=== PATIENT | female | born 1965 | race African-American/Black ===

== ENCOUNTER 2017-02-07 14:07 | Emergency (ER) | payer BC ==
--- NOTE | ~2017-02-07 | US89 ---
[facility] A Service of [facility] & [facility] RADIOLOGY TEXT RESULTS PATIENT: CLAUDY MARTINEZ LOCATION: [facility] : 67 UNIT #: [id number] AGE: [address]: Rubina Quezada APRN SEX: F ORDER DR: [id number] [facility] [address] [place], [place] [address] [id number] MR#: [id number] #: [id number] NAME: CLAUDY MARTINEZ : 1965 SEX: F STUDY DATE/TIME: 02/07/2017 14:52 UNIT: [facility] ROOM: STUDY DESCRIPTION: Lower Ext Arterial Exam Attending Physician: Rubina Quezada A.P.R.N. Referring Physician: Darren Jaime M.D. Ordering Physician: Marcellus Jameson M.D. Primary Care Physician: Kiley DurandPCarlosRIesha MEDICAL IMAGING REPORT This report is preliminary unless electronic signature is present EXAM Ankle-brachial indices, 02/07/17. HISTORY Pain. Diabetes, hypertension, hyperlipidemia. History of heart disease, bilateral rest pain for 1 week in both feet. FINDINGS Ankle-brachial indices performed bilaterally. All pressure measurements are in mmHg. Right brachial pressure 160, left brachial pressure 150. Pressure gradient between the upper extremities could be a reflection of underlying hemodynamically significant luminal narrowing in the proximal left upper extremity arterial tree. Distal right lower extremity pressures as follows: Posterior tibial at ankle 95, dorsalis pedis at ankle 96, great toe 72. Ankle-brachial index 0.60. Pulse volume recordings at the right ankle are irregular and of low volume. On the left, distal pressures as follows: Posterior tibial at ankle 147, dorsalis pedis at ankle 144, great toe 108. Ankle-brachial index 0.92. Pulse volume recordings triphasic at the ankle and biphasic to weakly triphasic at the left great toe. Better amplitude at the left ankle than right. IMPRESSION 1. The right ankle-brachial index is 0.60 suggesting moderate to severe arterial occlusive disease in the right lower extremity. The patient may be at significantly increased risk for ischemic sequelae in the right lower extremity. Correlate with clinical presentation. Consider vascular surgery consultation. In addition, there is a significant pressure gradient between the right ankle and great toe with a toe brachial index of 0.45. Findings likely reflect both STS. [facility] A Service of [facility] & [facility] RADIOLOGY TEXT RESULTS PATIENT: CLAUDY MARTINEZ LOCATION: [facility] : 67 UNIT #: [id number] AGE: [address]: Rubina Quezada APRN SEX: F ORDER DR: upstream disease in the right lower extremity and small vessel disease distal to the ankle in the right foot. 2. Ankle-brachial index 0.92 on the left is within normal limits. There appears to be adequate perfusion of the left lower extremity in the resting state. 3. There is a mild pressure gradient between the upper extremities left lower than right. This raises the possibility of hemodynamically-significant luminal narrowing in the proximal left upper extremity arterial tree. Correlate clinically. 4. If further evaluation of vascular anatomy would assist in management, CT angiography could be considered. Dictated by... Lobo Villagran M.D. THIS IS AN ELECTRONICALLY VERIFIED REPORT Lobo Villagran M.D. at 02/08/2017 5:37 PM Macho TD: 02/07/2017 18:14 JOB #: [id number] MEDICAL IMAGING REPORT Page 1 of 1 COPY
[~2017-02-07 14:07] MED LIST: AMBIEN PO; AMBIEN10 MG PO; AMOXICILLIN PO; AMOXICILLIN500 M1 PO; ASPIRIN81 M1 PO; ASPIRIN81 M2 PO; ASPIRIN81 MG PO; ATIVAN0.5 MG PO; AUGMENTIN PO; BACTRIM DS TABL1 TA1 PO; CELEXA20 MG PO; COREG3.125 MG PO; CRESTOR10 MG PO; EFFEXOR37.5 MG PO; EFFIENT10 MG PO; FLEXERIL PO; HYDROCODON-ACE1 EAC1 PO; IBUPROFEN; KEFLEX500 MG PO; LANTUS SOLOSTAR3 ML SUBQ; LANTUS100 U/M1 INJ; LANTUS100 U/ML SUBQ; LANTUS100 UNITS/ SUBQ; LIDOCAINE HC20 MG/M1 MM; LIPITOR PO; LISINOPRIL2.5 MG PO; LISINOPRIL20 MG PO; LORTAB 10-5001 EACH PO; LORTAB 5/500 TA1 TA1 PO; LORTAB 7.5-5001 TAB PO; METFORMIN HCL500 M1 PO; METOPROLOL TAR25 MG PO; NEURONTIN100 MG PO; NOVOLOG100 U/M2 INJ; PRILOSEC20 M1 PO; REQUIP0.5 MG PO; SEROQUEL XR50 MG PO; TAMIFLU75 M1 PO; TORADOL10 MG PO; TYLENOL PM; TYLENOL SINUS C1 TAB; VICODIN 5/1 TAB 5/50 PO; VISTARIL; ZESTRIL2.5 MG PO; ZOCOR10 MG PO
== END 2017-02-07 17:20 | disposition home or self-care (01) ==
LOC: CFTX 14:07 → CED 14:07 → CFTX 16:01
DX: I73.9 Peripheral vascular disease, unspecified (principal); E11.9 Type 2 diabetes mellitus without complications; F32.9 Major depressive disorder, single episode, unspecified; I10 Essential (primary) hypertension; F17.200 Nicotine dependence, unspecified, uncomplicated
CPT/HCPCS: 82947; 93923; 99283

== ENCOUNTER → 2017-02-14 | Outpatient (CLI) | payer BC ==
[2017-02-14 11:55] LABS: CREATININE SERUM 0.7 mg/dL (0.6-1.4); GLOM FILT RATE Estimated 117.1 mL/min (>60)
== END | disposition home or self-care (01) ==
LOC: CLAB 10:37
PROVIDERS: Surgery Vascular Surgery
DX: E11.9 Type 2 diabetes mellitus without complications (principal); E78.00 Pure hypercholesterolemia, unspecified; I73.9 Peripheral vascular disease, unspecified; L81.9 Disorder of pigmentation, unspecified; Z72.0 Tobacco use
CPT/HCPCS: 36415; 82565; 84520